=== PATIENT | female | born 1965 | race Hispanic/Latino ===

== ENCOUNTER 2023-09-17 19:52 | Emergency (ER) | payer OTHER, SELFPAY ==
[2023-09-17] MEDS ORDERED: Ondansetron ODT 4 MG TAB ONE (20:23)
== END 2023-09-17 21:17 | disposition home or self-care (01) ==
LOC: MADERS 19:52
DX: R41.2 Retrograde amnesia (principal); R11.0 Nausea
CPT/HCPCS: 70450; Q0162